=== PATIENT | female | born 2005 | race African-American/Black ===

== ENCOUNTER 2025-04-11 12:46 | Emergency (ER) | payer OTHER ==
[~2025-04-11] VITALS: Ht 167.6 cm; Wt 67.0 kg
[2025-04-11 13:11] VITALS: TEMP 37.1; O2SAT 100
[2025-04-11 14:37] LABS: CLARITY URINE CLEAR (CLEAR); COLOR URINE YELLOW (YELLOW); GLUCOSE URINE NEGATIVE (NEGATIVE); KETONES URINE NEGATIVE (NEGATIVE); LEUKOCYTE ESTERASE URINE 1+ (NEGATIVE); NITRITE URINE POSITIVE (NEGATIVE); OCCULT BLOOD URINE 1+ (NEGATIVE); PH URINE 5.0 (4.5-8.0); PROTEIN URINE NEGATIVE (NEGATIVE); SPECIFIC GRAVITY URINE 1.019 (1.005-1.030); UROBILINOGEN URINE 0.2 E.U./dL (0.2-1.0)
[2025-04-11 15:01] LABS: SQUAMOUS EPITHELIAL CELL URINE 2+ /lpf (RARE/1+); WBC URINE 15-25 /hpf (0-2)
[2025-04-11 15:02] LABS: BACTERIA URINE 4+; RBC URINE 0-2 /hpf (0-2)
[2025-04-11] MEDS ORDERED: DOXY100T2 MT (16:16)
[2025-04-11] MEDS ORDERED: METR-167 MT (16:16)
[2025-04-11] MEDS ORDERED: FLUC150T46 MT (16:24)
[2025-04-11 16:35] VITALS: BP 123/79; PULSE 64; RESP 16; O2SAT 99
[2025-04-11] MEDS: CEFTRIAXONE SODIUM 500MG VIAL IM ONE (16:36)
[2025-04-14 13:11] LABS: CHLAMYDIA TRACHOMATIS NAA Negative (Negative); NEISSERIA GONORRHOEAE NAA Negative (Negative)
== END 2025-04-11 16:36 | disposition home or self-care (01) ==
LOC: ER 12:46
DX: N89.8 Other specified noninflammatory disorders of vagina (principal); Z79.899 Other long term (current) drug therapy
CPT/HCPCS: 81003; 81025; 87077; 87186; 87210; 87491; 87591; 99283